=== PATIENT | female | born 1965 | race Caucasian/White ===

== ENCOUNTER 2016-08-28 01:30 | Emergency (ER) | payer BC ==
[~2016-08-28] VITALS: Ht 157.5 cm; Wt 58.2 kg
[~2016-08-28 01:30] MED LIST: ASPIRIN325 MG PO; CHLOR-TRIMETON4 MG PO; EXCEDRIN EXTRA1 EACH PO; MULTICHEW CHEW1 EACH PO
[2016-08-28 02:29] LABS: HEMATOCRIT 37.2 % (36.0-46.0); MCH 27.8 PG (29.0-34.0); MCHC 32.3 G/DL (30.0-36.0); MCV 86.3 FL (83-99); MEAN PLAT.VOLUME 9.7 uM^3 (9.5-12.4); PLATELET COUNT 356 K/uL (156-360); RBC DIS.WIDTH-CV 14.7 % (11.8-14.6); RBC DIS.WIDTH-SD 45.4 % (39-53); RED BLOOD COUNT 4.31 M/uL (3.80-5.20); WHITE BLOOD COUNT 7.7 K/uL (4.1-10.2)
[2016-08-28 02:38] LABS: CHLORIDE 108 mEq/L (99-109); POTASSIUM 3.7 mEq/L (3.7-5.4); SODIUM 142 mEq/L (136-147)
[2016-08-28 02:39] LABS: GLUCOSE 110 mg/dL (70-99)
[2016-08-28 02:41] LABS: ANION GAP 8 MEQ/L (2-14)
[2016-08-28 02:43] LABS: GFR ESTIMATE (CALCULATED) > 59 mL/min/
[2016-08-28 02:44] LABS: UREA NITROGEN (BUN) 14 mg/dL (9-23)
[2016-08-28 02:49] LABS: TROP-I INTERPRETATION NEGATIVE; TROPONIN-I < 0.01 ng/mL (0.0-0.30)
[2016-08-28] MEDS ORDERED: CIPRO500 MG PO (03:16)
[2016-08-28 03:29] VITALS: BP 130/68
== END 2016-08-28 03:30 | disposition home or self-care (01) ==
LOC: EME 01:30
DX: T37.0X5A Adverse effect of sulfonamides, initial encounter (principal); N39.0 Urinary tract infection, site not specified; R00.2 Palpitations; Z87.440 Personal history of urinary (tract) infections; Z87.442 Personal history of urinary calculi
CPT/HCPCS: 80048; 84484; 85027; 93005; 99281; 99284